=== PATIENT | male | born 1960 | race Caucasian/White ===

== ENCOUNTER 2016-06-27 13:05 | Emergency (ER) | payer OTHER ==
[2016-06-27] MEDS ORDERED: PROPARACAINE 0.5% OPHTH DROPS 15 ML RIGHTEYE STA (13:54)
[2016-06-27] MEDS ORDERED: PROPARACAINE 0.5% OPHTH DROPS 15 ML ONE (14:03)
[2016-06-27] MEDS ORDERED: ERYTHROMYCIN OPHTH OINT 1 GM TUBE RIGHTEYE STA (14:39)
[2016-06-27] MEDS ORDERED: ERYTHROMYCIN OPHTH OINT 1 GM TUBE ONE (14:48)
== END 2016-06-27 14:55 | disposition home or self-care (01) ==
DX: S05.01XA Injury of conjunctiva and corneal abrasion without foreign body, right eye, initial encounter (principal); W22.8XXA Striking against or struck by other objects, initial encounter; Y93.H9 Activity, other involving exterior property and land maintenance, building and construction; R03.0 Elevated blood-pressure reading, without diagnosis of hypertension; I48.91 Unspecified atrial fibrillation; Z79.899 Other long term (current) drug therapy; Z95.0 Presence of cardiac pacemaker
CPT/HCPCS: 99283; J3490

== ENCOUNTER 2020-11-02 12:08 | Outpatient (CLI) | payer OTHER | END 2020-11-02 12:09 | disposition home or self-care (01) | LOC: COV 12:08 | PROVIDERS: ATTEND Physician Assistant | DX: Z01.812 Encounter for preprocedural laboratory examination (principal); Z20.822 Contact with and (suspected) exposure to COVID-19 ==